=== PATIENT | female | born 1955 | race Hispanic/Latino ===

== ENCOUNTER 2018-10-31 12:29 | Emergency (ER) | payer MEDICARE ==
[2018-10-31 13:36] LABS: APPEARANCE,URINE Clear (CLEAR); BILIRUBIN,URINE Negative (NEGATIVE); COLOR,URINE Yellow (YELLOW); GLUCOSE, URINE (UA) >=1000 mg/dL (NEGATIVE); KETONES,URINE Negative (NEGATIVE); LEUKOCYTE ESTERASE ,URINE Negative (NEGATIVE); NITRATE,URINE Negative (NEGATIVE); OCCULT BLOOD,URINE Negative (NEGATIVE); PROTEIN,URINE Negative (NEGATIVE); UROBILINOGEN,URINE 0.2 mg/dL (0.2-1.0)
[2018-10-31 13:46] LABS: CREATININE 0.7 mg/dL (0.5-1.5); POTASSIUM 3.8 mmol/L (3.5-5.1)
[2018-10-31 13:50] LABS: BACTERIA,URINE None Seen /HPF (None Seen); RBC,URINE None Seen /HPF (0-1); SQUAMOUS EPITHELIAL CELL,UR 0-2 /HPF (0-2); WBC,URINE None Seen /HPF (0-1); YEAST,URINE BUDDING Rare /HPF (None Seen)
[2018-10-31 14:55] LABS: BASOPHILS % (AUTO) 0.7 % (0.0-5.0); EOSINOPHILS % (AUTO) 1.3 % (0.0-8.0); HEMATOCRIT 42.2 % (36-48); LYMPHOCYTES % (AUTO) 33.4 % (21.0-51.0); MEAN CORPUSCULAR HEMOGLOBIN 31.3 pg (27.0-33.0); MEAN CORPUSCULAR HGB CONC 33.7 g/dL (32.0-36.0); MEAN CORPUSCULAR VOLUME 92.9 fL (79-99); NEUTROPHILS % (AUTO) 58.6 % (40.0-77.0); NUCLEATED RED BLOOD CELLS 0.1 % (0.0-0.19); PLATELET COUNT (AUTO) 213 K/uL (130-400); RED BLOOD CELL COUNT(AUTO) 4.54 MIL/uL (4.00-5.50); WHITE BLOOD COUNT (AUTO) 9.8 K/uL (4.8-10.8)
== END 2018-10-31 15:22 | disposition home or self-care (01) ==
LOC: EDH 12:29
DX: B37.3 Candidiasis of vulva and vagina (principal); I10 Essential (primary) hypertension; E11.39 Type 2 diabetes mellitus with other diabetic ophthalmic complication; H42 Glaucoma in diseases classified elsewhere; Z79.4 Long term (current) use of insulin; Z72.0 Tobacco use
CPT/HCPCS: 36415; 80048; 81001; 85025

== ENCOUNTER 2023-09-08 14:32 | Inpatient (IN) | payer MEDICARE, OTHER ==
[~2023-09-08] VITALS: Ht 152.4 cm; Wt 68.7 kg
[2023-09-08 15:18] LABS: APPEARANCE,URINE CLOUDY (CLEAR); BILIRUBIN,URINE NEGATIVE (NEGATIVE); COLOR,URINE DARK-YELLOW (YELLOW); GLUCOSE, URINE (UA) >=1000 mg/dL (NEGATIVE); KETONES,URINE NEGATIVE (NEGATIVE); LEUKOCYTE ESTERASE ,URINE 500 Leu/uL (NEGATIVE); NITRATE,URINE 1+ (NEGATIVE); OCCULT BLOOD,URINE SMALL (NEGATIVE); PROTEIN,URINE 200 mg/dL (NEGATIVE); UROBILINOGEN,URINE 0.2 mg/dL (0.2-1.0)
[2023-09-08 15:20] LABS: ADD UA MICROSCOPIC YES
[2023-09-08 15:25] LABS: BACTERIA,URINE FEW /HPF (None Seen); MUCUS,URINE RARE LPF (None Seen); SQUAMOUS EPITHELIAL CELL,UR RARE /HPF (0-2); WBC,URINE 51-100 /HPF (0-1); YEAST,URINE BUDDING FEW /HPF (None Seen)
[2023-09-08 15:38] LABS: BASOPHILS # (AUTO) 0.03 K/uL (0.00-0.20); BASOPHILS % (AUTO) 0.2 % (0.0-5.0); EOSINOPHILS # (AUTO) 0.01 K/uL (0.00-0.70); EOSINOPHILS % (AUTO) 0.1 % (0.0-8.0); HEMATOCRIT 38.9 % (36-48); IMMATURE GRANULOCYTE ABSOLUTE 0.07 K/uL (0-1); LYMPHOCYTES # (AUTO) 0.6 K/uL (1.0-4.8); LYMPHOCYTES % (AUTO) 4.7 % (21.0-51.0); MEAN CORPUSCULAR HGB CONC 33.7 g/dL (32.0-36.0); MONOCYTES # (AUTO) 0.7 K/uL (0.1-1.0); MONOCYTES % (AUTO) 5.5 % (3.0-13.0); NEUTROPHILS % (AUTO) 88.9 % (40.0-77.0); PLATELET COUNT (AUTO) 396 K/uL (130-400); RED BLOOD CELL COUNT(AUTO) 4.23 MIL/uL (4.00-5.50); RED CELL DISTRIBUTION WIDTH 13.2 % (11.0-15.5); WHITE BLOOD COUNT (AUTO) 12.3 K/uL (4.8-10.8)
[2023-09-08 15:46] LABS: CREATININE 1.2 mg/dL (0.5-1.5); POTASSIUM 3.6 mmol/L (3.5-5.1)
[2023-09-08 15:50] LABS: ALBUMIN 2.9 g/dL (3.5-5.0); BILIRUBIN,TOTAL 0.4 mg/dL (0.2-1.0); TOTAL PROTEIN, SERUM 7.1 g/dL (6.0-8.3)
[2023-09-08] MEDS ORDERED: ZOSYN 3.375GM +NS 50ML IVPB ONE (17:00)
[2023-09-08] MEDS ORDERED: LACTATED RINGERS 1000ML 1,000 ML IV ONE (17:00)
[2023-09-08 17:10] LABS: INR 0.94 (0.85-1.15); PROTHROMBIN TIME 10.9 SEC (9.6-11.6)
[2023-09-08 17:11] LABS: PARTIAL THROMBOPLASTIN TIME 23.9 SEC (26.3-35.5)
[2023-09-08 18:29] LABS: RAPID GROUP A STREP negative (NEGATIVE)
[2023-09-08 18:33] LABS: SARS-CoV-2, RNA, NAAT NEGATIVE SARS CoV-2 (NEGATIVE)
[2023-09-08 18:39] LABS: INFLUENZA TYPE A Negative For Type A (NEGATIVE); INFLUENZA TYPE B Negative For Type B (NEGATIVE)
[2023-09-08] MEDS ORDERED: ASPIRIN 325MG TAB PO ONE (20:00)
[2023-09-08] MEDS: HEPARIN 25,000 UNITS/250ML D5W 250 ML IV SCH (20:05)
[2023-09-08] MEDS ORDERED: LACTATED RINGERS 1000ML 1,365 ML IV ONE (20:30)
[2023-09-08] MEDS ORDERED: NITROGLYCERIN 0.4 MG SL TAB SL PRN (20:30)
[2023-09-08] MEDS ORDERED: HEPARIN 5,000 UNIT VIAL IV PRN (20:30)
[2023-09-08] MEDS ORDERED: MORPHINE 4 MG SYG IV PRN (20:30)
[2023-09-08] MEDS ORDERED: ONDANSETRON 4MG INJ IV PRN (20:30)
[2023-09-08] MEDS: ZOSYN 3.375GM+NS 50ML 50 ML IVPB SCH (20:43)
[2023-09-08 21:35] VITALS: O2SAT 99
[2023-09-08 21:52] VITALS: BP 132/80; PULSE 92; RESP 23
[2023-09-08] MEDS ORDERED: POTASSIUM CHLORIDE 10% ELIXIR 20 MEQ/15 ML UDCUP PO PRN (22:00)
[2023-09-08] MEDS ORDERED: POTASSIUM CHLORIDE 20MEQ/100ML 100 ML IV PRN (22:00)
[2023-09-08] MEDS: INSULIN HUMULIN R 100 UNIT/ML 3ML SQ SCH (22:28)
[2023-09-08] MEDS: MORPHINE 2 MG SYG IV PRN (22:29)
[2023-09-08] MEDS: ACETAMINOPHEN 325 MG TAB PO PRN (23:50)
[2023-09-09] VITALS (8 sets, daily range): BP systolic 119–152; BP diastolic 46–69; PULSE 81–97; RESP 16–22; O2SAT 96–99
[2023-09-09 02:07] LABS: BASOPHILS # (AUTO) 0.05 K/uL (0.00-0.20); BASOPHILS % (AUTO) 0.4 % (0.0-5.0); EOSINOPHILS # (AUTO) 0.01 K/uL (0.00-0.70); EOSINOPHILS % (AUTO) 0.1 % (0.0-8.0); HEMATOCRIT 33.7 % (36-48); IMMATURE GRANULOCYTE ABSOLUTE 0.07 K/uL (0-1); LYMPHOCYTES # (AUTO) 1.5 K/uL (1.0-4.8); LYMPHOCYTES % (AUTO) 11.4 % (21.0-51.0); MEAN CORPUSCULAR HEMOGLOBIN 31.7 pg (27.0-33.0); MEAN CORPUSCULAR VOLUME 90.6 fL (79-99); MONOCYTES % (AUTO) 7.9 % (3.0-13.0); NEUTROPHILS # (AUTO) 10.4 K/uL (1.8-7.7); NEUTROPHILS % (AUTO) 79.7 % (40.0-77.0); PLATELET COUNT (AUTO) 328 K/uL (130-400); RED BLOOD CELL COUNT(AUTO) 3.72 MIL/uL (4.00-5.50); RED CELL DISTRIBUTION WIDTH 13.2 % (11.0-15.5)
[2023-09-09 02:22] LABS: HEMOGLOBIN A1C 10.7 % (4.0-6.0)
[2023-09-09 02:38] LABS: MAGNESIUM 1.5 mg/dL (1.80-2.40); PHOSPHORUS 1.6 mg/dL (2.5-4.9)
[2023-09-09 02:40] LABS: POTASSIUM 2.9 mmol/L (3.5-5.1)
[2023-09-09] MEDS: KCL 20 MEQ ERTAB PO PRN ×3 (02:51→08:19)
[2023-09-09] MEDS ORDERED: LACTATED RINGERS 1000ML 1,000 ML IV SCH (03:00)
[2023-09-09] MEDS: HEPARIN 25,000 UNITS/250ML D5W 250 ML IV SCH (03:06)
[2023-09-09] MEDS: ZOSYN 3.375GM+NS 50ML 50 ML IVPB SCH ×3 (04:02→20:57)
[2023-09-09] MEDS: MAGNESIUM 2GM PREMIX 50ML 50 ML IV PRN (04:59)
[2023-09-09] MEDS: INSULIN HUMULIN R 100 UNIT/ML 3ML SQ SCH ×4 (05:44→21:41)
[2023-09-09] MEDS ORDERED: INSULIN HUMULIN R 100 UNIT/ML 3ML SQ SCH (07:30)
[2023-09-09] MEDS: FAMOTIDINE 20MG TAB PO SCH (08:19)
[2023-09-09] MEDS: ASPIRIN 81MG CHEW TAB PO SCH (08:19)
[2023-09-09] MEDS: MORPHINE 2 MG SYG IV PRN (08:35)
[2023-09-09] MEDS ORDERED: ENOXAPARIN SODIUM 40 MG/0.4 ML SYRINGE SQ SCH (09:00)
[2023-09-09] MEDS: METOPROLOL TARTRATE 25 MG TAB PO SCH (20:57)
[2023-09-09] MEDS: ACETAMINOPHEN 325 MG TAB PO PRN (20:58)
[2023-09-10] VITALS (7 sets, daily range): BP systolic 114–148; BP diastolic 59–78; PULSE 67–92; RESP 18–20; O2SAT 97
[2023-09-10] MEDS: ACETAMINOPHEN 325 MG TAB PO PRN ×2 (04:14→20:15)
[2023-09-10] MEDS: ZOSYN 3.375GM+NS 50ML 50 ML IVPB SCH ×3 (04:15→20:12)
[2023-09-10 04:30] LABS: HEMATOCRIT 32.3 % (36-48); MEAN CORPUSCULAR HGB CONC 33.4 g/dL (32.0-36.0); MEAN CORPUSCULAR VOLUME 92.8 fL (79-99); RED BLOOD CELL COUNT(AUTO) 3.48 MIL/uL (4.00-5.50); RED CELL DISTRIBUTION WIDTH 13.3 % (11.0-15.5); WHITE BLOOD COUNT (AUTO) 12.5 K/uL (4.8-10.8)
[2023-09-10 04:39] LABS: CREATININE 0.7 mg/dL (0.5-1.5); POTASSIUM 3.7 mmol/L (3.5-5.1)
[2023-09-10] MEDS: INSULIN HUMULIN R 100 UNIT/ML 3ML SQ SCH ×4 (07:02→20:21)
[2023-09-10] MEDS: FAMOTIDINE 20MG TAB PO SCH ×2 (08:44→20:17)
[2023-09-10] MEDS: ASPIRIN 81MG CHEW TAB PO SCH (08:44)
[2023-09-10] MEDS: METOPROLOL TARTRATE 25 MG TAB PO SCH ×2 (08:45→20:16)
[2023-09-10] MEDS ORDERED: ROSU40TA21 PO (10:55)
[2023-09-10] MEDS ORDERED: METF-444 PO (11:43)
[2023-09-10] MEDS ORDERED: PANT40TA54 PO (11:43)
[2023-09-10] MEDS ORDERED: HYDR25TA PO (11:43)
[2023-09-10] MEDS ORDERED: ACET250T28 PO (11:43)
[2023-09-10] MEDS ORDERED: INSU100I3 SQ (11:43)
[2023-09-10] MEDS ORDERED: CAND8TAB14 PO (11:43)
[2023-09-10] MEDS ORDERED: MECO10002 SL (11:43)
[2023-09-10] MEDS ORDERED: METO-409 PO (11:43)
[2023-09-10] MEDS ORDERED: ESCI20TA PO (11:43)
[2023-09-10] MEDS ORDERED: INSLAN SQ (11:43)
[2023-09-10] MEDS: ENOXAPARIN SODIUM 30 MG/0.3 ML SQ SCH (14:31)
[2023-09-10] MEDS: SIMETHICONE 80 MG TAB.CHEW PO PRN (14:31)
[2023-09-10] MEDS: MIRTAZAPINE 15 MG TABLET PO SCH (20:19)
[2023-09-10] MEDS ORDERED: HYDROXYZINE 25 MG TABLET PO PRN (21:00)
[2023-09-11] VITALS (9 sets, daily range): BP systolic 131–169; BP diastolic 51–72; PULSE 64–89; RESP 16–18; O2SAT 95–98
[2023-09-11] MEDS: ACETAMINOPHEN 325 MG TAB PO PRN ×2 (03:50→20:00)
[2023-09-11 03:58] LABS: HEMATOCRIT 31.7 % (36-48); MEAN CORPUSCULAR HEMOGLOBIN 30.9 pg (27.0-33.0); MEAN CORPUSCULAR HGB CONC 33.8 g/dL (32.0-36.0); MEAN CORPUSCULAR VOLUME 91.6 fL (79-99); RED BLOOD CELL COUNT(AUTO) 3.46 MIL/uL (4.00-5.50); RED CELL DISTRIBUTION WIDTH 13.5 % (11.0-15.5); WHITE BLOOD COUNT (AUTO) 7.6 K/uL (4.8-10.8)
[2023-09-11 04:08] LABS: CREATININE 0.8 mg/dL (0.5-1.5); POTASSIUM 4.2 mmol/L (3.5-5.1)
[2023-09-11] MEDS: ZOSYN 3.375GM+NS 50ML 50 ML IVPB SCH ×3 (05:42→19:58)
[2023-09-11] MEDS: INSULIN HUMULIN R 100 UNIT/ML 3ML SQ SCH ×4 (06:21→20:16)
[2023-09-11] MEDS: METOPROLOL TARTRATE 25 MG TAB PO SCH ×2 (10:01→19:58)
[2023-09-11] MEDS: ASPIRIN 81MG CHEW TAB PO SCH (10:01)
[2023-09-11] MEDS: FAMOTIDINE 20MG TAB PO SCH ×2 (10:01→19:59)
[2023-09-11] MEDS: ENOXAPARIN SODIUM 30 MG/0.3 ML SQ SCH (10:02)
[2023-09-11] MEDS: MIRTAZAPINE 15 MG TABLET PO SCH (19:59)
[2023-09-12] VITALS (9 sets, daily range): BP systolic 122–167; BP diastolic 54–82; PULSE 63–83; RESP 18–20; TEMP 99.8; O2SAT 97–98
[2023-09-12] MEDS: ZOSYN 3.375GM+NS 50ML 50 ML IVPB SCH ×3 (04:57→20:57)
[2023-09-12] MEDS: ACETAMINOPHEN 325 MG TAB PO PRN ×4 (05:01→20:57)
[2023-09-12] MEDS: INSULIN HUMULIN R 100 UNIT/ML 3ML SQ SCH ×5 (06:01→21:01)
[2023-09-12 08:28] LABS: BASOPHILS # (AUTO) 0.03 K/uL (0.00-0.20); BASOPHILS % (AUTO) 0.3 % (0.0-5.0); EOSINOPHILS # (AUTO) 0.01 K/uL (0.00-0.70); EOSINOPHILS % (AUTO) 0.1 % (0.0-8.0); HEMATOCRIT 32.8 % (36-48); IMMATURE GRANULOCYTE ABSOLUTE 0.04 K/uL (0-1); LYMPHOCYTES # (AUTO) 2.2 K/uL (1.0-4.8); LYMPHOCYTES % (AUTO) 23.8 % (21.0-51.0); MEAN CORPUSCULAR HEMOGLOBIN 30.6 pg (27.0-33.0); MEAN CORPUSCULAR HGB CONC 32.6 g/dL (32.0-36.0); MEAN CORPUSCULAR VOLUME 93.7 fL (79-99); MONOCYTES # (AUTO) 1.4 K/uL (0.1-1.0); MONOCYTES % (AUTO) 15.5 % (3.0-13.0); NEUTROPHILS # (AUTO) 5.4 K/uL (1.8-7.7); NEUTROPHILS % (AUTO) 59.9 % (40.0-77.0); PLATELET COUNT (AUTO) 374 K/uL (130-400); RED CELL DISTRIBUTION WIDTH 13.9 % (11.0-15.5); WHITE BLOOD COUNT (AUTO) 9.1 K/uL (4.8-10.8)
[2023-09-12 08:42] LABS: CREATININE 0.8 mg/dL (0.5-1.5); MAGNESIUM 1.9 mg/dL (1.80-2.40); POTASSIUM 3.7 mmol/L (3.5-5.1)
[2023-09-12] MEDS ORDERED: NON-FORMULARY MEDICATION 1 EACH (Metoprolol Succinate 100 MG) PO SCH (09:00)
[2023-09-12] MEDS ORDERED: MECOBALAMIN 1000 MCG SL SCH (09:00)
[2023-09-12] MEDS ORDERED: AcetaZOLAMIDE 250 MG TAB PO SCH (09:00)
[2023-09-12] MEDS ORDERED: NON-FORMULARY MEDICATION 1 EACH (Rosuvastatin Calcium 40 MG) PO SCH (09:00)
[2023-09-12] MEDS ORDERED: CANDESARTAN CILEXETIL 8 MG PO SCH (09:00)
[2023-09-12] MEDS: FAMOTIDINE 20MG TAB PO SCH ×2 (09:28→20:57)
[2023-09-12] MEDS: CYANOCOBALAMIN (VITAMIN B-12) 1,000 MCG TABLET PO SCH (09:29)
[2023-09-12] MEDS: METOPROLOL TARTRATE 25 MG TAB PO SCH ×2 (09:29→20:58)
[2023-09-12] MEDS: ASPIRIN 81MG CHEW TAB PO SCH (09:29)
[2023-09-12] MEDS: HYDROCHLOROTHIAZIDE 25 MG TABLET PO SCH (09:29)
[2023-09-12] MEDS: LOSARTAN 50 MG TABLET PO SCH (09:29)
[2023-09-12] MEDS: ENOXAPARIN SODIUM 30 MG/0.3 ML SQ SCH (09:29)
[2023-09-12] MEDS: MAGNESIUM 2GM PREMIX 50ML 50 ML IV PRN (09:30)
[2023-09-12] MEDS: KCL 20 MEQ ERTAB PO PRN ×2 (12:00→14:26)
[2023-09-12] MEDS: ATORVASTATIN 40 MG TABLET PO SCH (20:57)
[2023-09-12] MEDS: MIRTAZAPINE 15 MG TABLET PO SCH (20:58)
[2023-09-12] MEDS: SIMETHICONE 80 MG TAB.CHEW PO PRN (21:13)
[2023-09-12] MEDS: MORPHINE 2 MG SYG IV PRN (23:48)
[2023-09-13] VITALS (7 sets, daily range): BP systolic 112–151; BP diastolic 59–71; PULSE 64–74; RESP 18–20; O2SAT 97–98
[2023-09-13] MEDS: INSULIN HUMULIN R 100 UNIT/ML 3ML SQ SCH ×4 (05:35→21:01)
[2023-09-13] MEDS: ZOSYN 3.375GM+NS 50ML 50 ML IVPB SCH ×3 (06:15→20:52)
[2023-09-13] MEDS: FAMOTIDINE 20MG TAB PO SCH ×2 (08:46→20:55)
[2023-09-13] MEDS: LOSARTAN 50 MG TABLET PO SCH (08:47)
[2023-09-13] MEDS: METOPROLOL TARTRATE 25 MG TAB PO SCH ×2 (08:47→20:55)
[2023-09-13] MEDS: HYDROCHLOROTHIAZIDE 25 MG TABLET PO SCH (08:48)
[2023-09-13] MEDS: ASPIRIN 81MG CHEW TAB PO SCH (08:48)
[2023-09-13] MEDS: ENOXAPARIN SODIUM 30 MG/0.3 ML SQ SCH (08:49)
[2023-09-13] MEDS: CYANOCOBALAMIN (VITAMIN B-12) 1,000 MCG TABLET PO SCH (08:50)
[2023-09-13] MEDS ORDERED: MIRT-146 PO (09:00)
[2023-09-13] MEDS ORDERED: Nitroglycerin 0.4MG Sl Tab SL (09:00)
[2023-09-13] MEDS ORDERED: LOSA-418 PO (09:00)
[2023-09-13] MEDS ORDERED: ASPI-1005 PO (09:00)
[2023-09-13] MEDS ORDERED: METO25 PO (09:00)
[2023-09-13] MEDS ORDERED: NITR100C9 PO (09:01)
[2023-09-13] MEDS ORDERED: HYDR-3421 PO (09:02)
[2023-09-13] MEDS: SIMETHICONE 80 MG TAB.CHEW PO PRN (18:39)
[2023-09-13] MEDS: MIRTAZAPINE 15 MG TABLET PO SCH (20:54)
[2023-09-13] MEDS: ATORVASTATIN 40 MG TABLET PO SCH (20:54)
[2023-09-13] MEDS: MORPHINE 2 MG SYG IV PRN (21:02)
[2023-09-14] VITALS (7 sets, daily range): BP systolic 119–186; BP diastolic 52–77; PULSE 69–79; RESP 14–20; O2SAT 96–98
[2023-09-14] MEDS: ZOSYN 3.375GM+NS 50ML 50 ML IVPB SCH ×3 (04:48→20:38)
[2023-09-14] MEDS: INSULIN HUMULIN R 100 UNIT/ML 3ML SQ SCH ×4 (05:27→20:38)
[2023-09-14 05:40] LABS: HEMATOCRIT 32.9 % (36-48); MEAN CORPUSCULAR HEMOGLOBIN 30.8 pg (27.0-33.0); MEAN CORPUSCULAR HGB CONC 33.4 g/dL (32.0-36.0); MEAN CORPUSCULAR VOLUME 92.2 fL (79-99); RED BLOOD CELL COUNT(AUTO) 3.57 MIL/uL (4.00-5.50); RED CELL DISTRIBUTION WIDTH 13.3 % (11.0-15.5)
[2023-09-14 06:00] LABS: ALBUMIN 2.2 g/dL (3.5-5.0); BILIRUBIN,TOTAL 0.5 mg/dL (0.2-1.0); CREATININE 0.8 mg/dL (0.5-1.5); MAGNESIUM 1.6 mg/dL (1.80-2.40); POTASSIUM 3.6 mmol/L (3.5-5.1); TOTAL PROTEIN, SERUM 6.6 g/dL (6.0-8.3)
[2023-09-14] MEDS: LOSARTAN 50 MG TABLET PO SCH (09:08)
[2023-09-14] MEDS: HYDROCHLOROTHIAZIDE 25 MG TABLET PO SCH (09:08)
[2023-09-14] MEDS: CYANOCOBALAMIN (VITAMIN B-12) 1,000 MCG TABLET PO SCH (09:08)
[2023-09-14] MEDS: ASPIRIN 81MG CHEW TAB PO SCH (09:08)
[2023-09-14] MEDS: FAMOTIDINE 20MG TAB PO SCH ×2 (09:08→20:34)
[2023-09-14] MEDS: ENOXAPARIN SODIUM 30 MG/0.3 ML SQ SCH (09:09)
[2023-09-14] MEDS: METOPROLOL TARTRATE 25 MG TAB PO SCH ×2 (09:11→20:34)
[2023-09-14] MEDS ORDERED: MAGNESIUM 2GM PREMIX 50ML 50 ML IV PRN (10:30)
[2023-09-14] MEDS: MAGNESIUM 2GM PREMIX 50ML 50 ML IV PRN (11:21)
[2023-09-14] MEDS ORDERED: METOPROLOL TARTRATE 1 MG/ML 5ML VIAL IV PRN (17:00)
[2023-09-14] MEDS: ATORVASTATIN 40 MG TABLET PO SCH (20:34)
[2023-09-14] MEDS: MIRTAZAPINE 15 MG TABLET PO SCH (20:35)
[2023-09-14] MEDS: ACETAMINOPHEN 325 MG TAB PO PRN (20:36)
[2023-09-15] VITALS: BP 144/72; PULSE 62; RESP 20
[2023-09-15] MEDS: ZOSYN 3.375GM+NS 50ML 50 ML IVPB SCH ×2 (03:32→12:48)
[2023-09-15 04:44] VITALS: BP 184/88; PULSE 65; RESP 20
[2023-09-15] MEDS: INSULIN HUMULIN R 100 UNIT/ML 3ML SQ SCH ×3 (05:28→16:03)
[2023-09-15 08:00] VITALS: BP 165/76; PULSE 64; RESP 16; O2SAT 98
[2023-09-15] MEDS: CYANOCOBALAMIN (VITAMIN B-12) 1,000 MCG TABLET PO SCH (09:37)
[2023-09-15] MEDS: LOSARTAN 50 MG TABLET PO SCH (09:37)
[2023-09-15] MEDS: ASPIRIN 81MG CHEW TAB PO SCH (09:37)
[2023-09-15] MEDS: ENOXAPARIN SODIUM 30 MG/0.3 ML SQ SCH (09:37)
[2023-09-15] MEDS: FAMOTIDINE 20MG TAB PO SCH (09:38)
[2023-09-15] MEDS: METOPROLOL TARTRATE 25 MG TAB PO SCH (09:38)
[2023-09-15] MEDS: HYDROCHLOROTHIAZIDE 25 MG TABLET PO SCH (09:38)
[2023-09-15 12:00] VITALS: BP 143/78; PULSE 68; RESP 16
[2023-09-15 15:54] VITALS: BP_SYST 147; BP_SYST 165; BP_DIAS 67; BP_DIAS 76; PULSE 64; PULSE 65; RESP 16
== END 2023-09-15 16:00 | DRG 871 ==
LOC: EDH 14:32 → EDHIP 20:18 → 2DH 21:28 → 4BH 09-13 22:53
PROVIDERS: ADMIT Internal Medicine; ATTEND Internal Medicine
DX: A41.9 Sepsis, unspecified organism (principal); I21.A1 Myocardial infarction type 2; N39.0 Urinary tract infection, site not specified; Z20.822 Contact with and (suspected) exposure to COVID-19; E11.65 Type 2 diabetes mellitus with hyperglycemia; F32.A Depression, unspecified; N18.31 Chronic kidney disease, stage 3a; I12.9 Hypertensive chronic kidney disease with stage 1 through stage 4 chronic kidney disease, or unspecified chronic kidney disease; K21.9 Gastro-esophageal reflux disease without esophagitis; E11.22 Type 2 diabetes mellitus with diabetic chronic kidney disease; E78.5 Hyperlipidemia, unspecified; R53.1 Weakness; B96.20 Unspecified Escherichia coli [E. coli] as the cause of diseases classified elsewhere; F41.1 Generalized anxiety disorder; F43.20 Adjustment disorder, unspecified; E66.9 Obesity, unspecified; Z68.30 Body mass index [BMI] 30.0-30.9, adult; Z86.73 Personal history of transient ischemic attack (TIA), and cerebral infarction without residual deficits; Z87.891 Personal history of nicotine dependence; Z90.710 Acquired absence of both cervix and uterus; Z79.899 Other long term (current) drug therapy; Z79.84 Long term (current) use of oral hypoglycemic drugs
CPT/HCPCS: 36415; 71045; 80048; 80053; 81001; 82550; 82948; 83036; 83605; 83735; 84100; 84145; 84484; 85025; 85027; 85610; 85730; 87040; 87077; 87088; 87186; 87635; 87804; 87880; 93005; 93306; 93356; 96365; C9803; G0378; J1644; J1650; J1815; J2270; J2543; J3475; J3480; J3490; J7120